=== PATIENT | male | born 1965 | race Caucasian/White ===

== ENCOUNTER 2020-08-11 22:15 | Emergency (ER) | payer MEDICAID ==
[~2020-08-11] VITALS: Ht 170.2 cm; Wt 79.8 kg
[2020-08-11 22:23] VITALS: Ht 170.2 cm; Wt 79.8 kg
[2020-08-12 00:06] LABS: CALCIUM 8.8 mg/dL (8.5-10.1); CARBON DIOXIDE 26.1 mmol/L (21-32); CHLORIDE SERUM 102 mmol/L (98-107); GFR1 > 60 mL/min; GLUCOSE SERUM 101 mg/dL (74-106); POTASSIUM SERUM 3.8 mmol/L (3.5-5.1); SODIUM SERUM 139 mmol/L (136-145)
[2020-08-12 00:10] LABS: ALBUMIN 3.5 g/dL (3.4-5.0); ALKALINE PHOSPHATASE 58 U/L (46-116); ALT/SGPT 68 U/L (16-63); AST/SGOT 32 U/L (15-37); BILIRUBIN TOTAL 0.2 mg/dL (0.20-1.00)
[2020-08-12 00:36] LABS: BASOPHIL % 0.7 % (0.2-1.5); PLATELET COUNT 190 x10^3mcL (152-348); RED CELL DISTRIBUTION WIDTH 13.5 % (12.1-16.2)
[2020-08-12] MEDS ORDERED: PEPCID AC20 M2 PO (00:56)
[2020-08-12] MEDS ORDERED: MAALOX MAXIMUM355 ML PO (00:56)
[2020-08-12 01:08] VITALS: BP 150/92
== END 2020-08-12 01:08 | disposition home or self-care (01) ==
LOC: ED 22:15
PROVIDERS: Student in an Organized Health Care Education/Training Program
DX: K29.70 Gastritis, unspecified, without bleeding (principal); F17.210 Nicotine dependence, cigarettes, uncomplicated; Z71.6 Tobacco abuse counseling
CPT/HCPCS: 99406